=== PATIENT | male | born 1955 | race Caucasian/White ===

== ENCOUNTER → 2016-10-14 | Outpatient (CLI) | payer OTHER ==
--- NOTE | 2016-10-14 19:01 | DX ---
Cervical spine, 4 views HISTORY: Neck pain, anterior cervical diskectomy. TECHNIQUE: AP, lateral neutral, lateral flexion and lateral extension views of the cervical spine. Findings: Anterior cervical fusion plate and screws noted at C5, C6 and C7 with interbody fusion plu gs. Hardware appears intact. Flexion and extension views demonstrate C4-C5 moderate degenerative disk disease with degenerative re trolisthesis approximately 3 mm appearing more accentuated on extension and neutralizes on the flexio n, suggesting mild instability. C3-C4 demonstrates grade 1 anterolisthesis 3 mm on the neutral and flexion and neutralizes on the ext ension, also consistent with mild instability. IMPRESSION: 1. C3-C4 mild instability. 2. C4-C5 moderate degenerative disk disease with mild instability. 3. C5 through C7 anterior diskectomy and fusion hardware appears intact.
== END ==
LOC: FIMAGING 12:09
PROVIDERS: ATTEND Neurological Surgery
DX: Z09 Encounter for follow-up examination after completed treatment for conditions other than malignant neoplasm (principal); Z98.1 Arthrodesis status